=== PATIENT | male | born 1950 | race Two or more races ===

== ENCOUNTER → 2020-02-19 | Day surgery (SDC) | payer MEDICARE, OTHER ==
[2020-02-14 11:15] LABS: Basophils # (auto) 0 10 ^3/uL (0-0.2); Basophils % (auto) 0.2 % (0.0-2.0); Eosinophils # (auto) 0.2 10 ^3/uL (0-0.8); Eosinophils % (auto) 4.7 % (0.0-7.0); Hematocrit 34.2 % (41.0-53.0); Lymphocytes # (auto) 1.1 10 ^3/uL (0.4-5.4); Lymphocytes % (auto) 23.1 % (10.0-50.0); Mean Corpuscular Hemoglobin 32.6 pg (28.0-32.0); Mean Corpuscular Hgb Conc. 32.1 g/dL (32.0-36.0); Mean Corpuscular Volume 101.8 fL (80.0-100.0); Monocytes # (auto) 0.4 10 ^3/uL (0-1.3); Monocytes % (auto) 7.4 % (0.0-12.0); Neutrophils # (auto) 3.2 10 ^3/uL (1.6-8.6); Neutrophils % (auto) 64.6 % (37.0-80.0); Nucleated Red Blood Cells % 0.2 %; Platelet Count (auto) 202 10^3/uL (140-450); Red Blood Cells 3.36 10^6/uL (4.5-5.90); Red Cell Distribution Width 16.2 % (11.8-14.3); White Blood Cell 4.9 10^3/uL (4.4-10.8)
[2020-02-14 11:30] LABS: INR 0.98 (0.9-1.15)
[~2020-02-19] VITALS: Ht 172.7 cm; Wt 104.3 kg
[~2020-02-19] MED LIST: ALLO300T2 OR; ASPI-543 PO; ATOR10TA OR; CAND16TA11 OR; DULA1INJ SC; FLUMAZENIL 0.1 MG/ML INJ 10ML MDV IV ONE; GABA300C10 PO; INSU1INJ21 SC; INSUINJ32 SC; LIDOCAINE VISCOUS 2% 15ML UD ONE; METF-371 PO; NALOXONE HCL 0.4 MG/ML VIAL ONE; PIOG30TA20 PO; SODIUM CHLORIDE LOCK 10 ML ONE; diphenhdrAMINE HCL 50 MG/1 ML VL ONE
[2020-02-19] MEDS: fentaNYL CITRATE 100 MCG/2 ML VL ONE ×3 (13:05→13:20)
[2020-02-19] MEDS: MIDAZOLAM HCL 5 MG/ML-1ML VIAL ONE ×4 (13:05→13:20)
[2020-02-19 14:05] VITALS: BP 122/62
== END | disposition home or self-care (01) ==
LOC: GI 12:16
PROVIDERS: ATTEND Internal Medicine Gastroenterology
DX: K92.1 Melena (principal); K22.70 Barrett's esophagus without dysplasia; K44.9 Diaphragmatic hernia without obstruction or gangrene; K29.50 Unspecified chronic gastritis without bleeding; K21.00 Gastro-esophageal reflux disease with esophagitis, without bleeding; K63.5 Polyp of colon; K63.89 Other specified diseases of intestine; K57.30 Diverticulosis of large intestine without perforation or abscess without bleeding; K64.8 Other hemorrhoids; G47.30 Sleep apnea, unspecified; E66.9 Obesity, unspecified; E11.9 Type 2 diabetes mellitus without complications; Z20.828 Contact with and (suspected) exposure to other viral communicable diseases; Z98.890 Other specified postprocedural states; Z86.010 Personal history of colon polyps; Z80.0 Family history of malignant neoplasm of digestive organs; Z68.35 Body mass index [BMI] 35.0-35.9, adult; Z79.899 Other long term (current) drug therapy
CPT/HCPCS: 36415; 43239; 43450; 45380; 45385; 82962; 85025; 85610; 85730; J2250; J3010; J7030; U0003; 99153; G0500

== ENCOUNTER 2021-01-06 12:35 | Day surgery (SDC) | payer MEDICARE, OTHER ==
[2021-01-01 11:29] LABS: Basophils # (auto) 0 10 ^3/uL (0-0.2); Basophils % (auto) 0.7 % (0.0-2.0); Eosinophils # (auto) 0.2 10 ^3/uL (0-0.8); Eosinophils % (auto) 5.6 % (0.0-7.0); Hematocrit 29.5 % (41.0-53.0); Hemoglobin 9.7 g/dL (13.5-17.5); Lymphocytes # (auto) 1.3 10 ^3/uL (0.4-5.4); Lymphocytes % (auto) 29.4 % (10.0-50.0); Mean Corpuscular Hemoglobin 32.7 pg (28.0-32.0); Mean Corpuscular Hgb Conc. 32.7 g/dL (32.0-36.0); Mean Corpuscular Volume 99.9 fL (80.0-100.0); Monocytes # (auto) 0.4 10 ^3/uL (0-1.3); Monocytes % (auto) 8.6 % (0.0-12.0); Neutrophils # (auto) 2.5 10 ^3/uL (1.6-8.6); Neutrophils % (auto) 55.7 % (37.0-80.0); Red Blood Cells 2.96 10^6/uL (4.5-5.90); Red Cell Distribution Width 17.3 % (11.8-14.3); White Blood Cell 4.5 10^3/uL (4.4-10.8)
[2021-01-01 12:09] LABS: Potassium 4.6 mmol/L (3.5-5.1)
[2021-01-01 12:21] LABS: Albumin 3.1 g/dL (3.4-5.0); BUN/Creatinine Ratio 13.9; Bilirubin, Total 0.4 mg/dL (0.2-1.0); Calcium 9.2 mg/dL (8.5-10.1)
[~2021-01-06 12:35] MED LIST changes: +ASCO500T11 PO; -ASPI-543 PO; -ATOR10TA OR; +CAND16TA OR; -CAND16TA11 OR; +CHOL20007 PO; +CYAN1TAB14 PO; +FER300LQ GT; +FER325T PO; -FLUMAZENIL 0.1 MG/ML INJ 10ML MDV IV ONE; -LIDOCAINE VISCOUS 2% 15ML UD ONE; -NALOXONE HCL 0.4 MG/ML VIAL ONE; +OMEG100062 PO; +PANT40TA2 PO; -PIOG30TA20 PO; +PIOG30TA28 PO; -SODIUM CHLORIDE LOCK 10 ML ONE; +TAMS0.4C36 PO; -diphenhdrAMINE HCL 50 MG/1 ML VL ONE
[2021-01-06] MEDS ORDERED: LIDOCAINE VISCOUS 2% 15ML UD ONE (12:45)
[2021-01-06] MEDS ORDERED: SODIUM CHLORIDE LOCK 10 ML ONE (12:45)
[2021-01-06] MEDS: diphenhdrAMINE HCL 50 MG/1 ML VL ONE ×2 (13:28→13:36)
[2021-01-06] MEDS: MIDAZOLAM HCL 5 MG/ML-1ML VIAL ONE ×2 (13:28→13:31)
[2021-01-06] MEDS: fentaNYL CITRATE 100 MCG/2 ML VL ONE ×2 (13:28→13:31)
[2021-01-06 14:15] VITALS: BP 139/62
== END 2021-01-06 14:20 | disposition home or self-care (01) ==
LOC: GI 12:35
PROVIDERS: ATTEND Internal Medicine Gastroenterology
DX: K21.9 Gastro-esophageal reflux disease without esophagitis (principal); K44.9 Diaphragmatic hernia without obstruction or gangrene; K22.70 Barrett's esophagus without dysplasia; K31.89 Other diseases of stomach and duodenum; K29.70 Gastritis, unspecified, without bleeding; I10 Essential (primary) hypertension; E11.9 Type 2 diabetes mellitus without complications; E78.5 Hyperlipidemia, unspecified; M10.9 Gout, unspecified; Z96.651 Presence of right artificial knee joint; Z20.822 Contact with and (suspected) exposure to COVID-19; Z98.890 Other specified postprocedural states; Z79.899 Other long term (current) drug therapy; Z80.0 Family history of malignant neoplasm of digestive organs; Z82.49 Family history of ischemic heart disease and other diseases of the circulatory system; Z83.3 Family history of diabetes mellitus
CPT/HCPCS: 36415; 43239; 80053; 82962; 85025; 88305; 88312; 88313; 88342; J1200; J2250; J3010; J7030; U0003; G0500

== ENCOUNTER → 2021-08-26 | Outpatient (CLI) | payer MEDICARE, OTHER ==
[2021-08-26 11:24] LABS: Basophils # (auto) 0 10 ^3/uL (0-0.2); Basophils % (auto) 0.3 % (0.0-2.0); Eosinophils # (auto) 0.1 10 ^3/uL (0-0.8); Eosinophils % (auto) 2.4 % (0.0-7.0); Hematocrit 31.9 % (41.0-53.0); Hemoglobin 10.5 g/dL (13.5-17.5); Lymphocytes # (auto) 1.4 10 ^3/uL (0.4-5.4); Lymphocytes % (auto) 27.7 % (10.0-50.0); Mean Corpuscular Hemoglobin 31.7 pg (28.0-32.0); Mean Corpuscular Hgb Conc. 32.8 g/dL (32.0-36.0); Mean Corpuscular Volume 96.5 fL (80.0-100.0); Monocytes # (auto) 0.2 10 ^3/uL (0-1.3); Monocytes % (auto) 4.6 % (0.0-12.0); Neutrophils # (auto) 3.4 10 ^3/uL (1.6-8.6); Nucleated Red Blood Cells % 0.1 %; Red Blood Cells 3.31 10^6/uL (4.5-5.90); Red Cell Distribution Width 16.1 % (11.8-14.3); White Blood Cell 5.2 10^3/uL (4.4-10.8)
[2021-08-26 12:30] LABS: Folate (Folic Acid) 8.85 ng/mL (5.38-24)
== END | disposition home or self-care (01) ==
LOC: LAB 11:13
PROVIDERS: ATTEND Internal Medicine Gastroenterology
DX: D64.9 Anemia, unspecified (principal)
CPT/HCPCS: 36415; 82607; 82746; 85025

== ENCOUNTER 2022-01-04 09:21 | Day surgery (SDC) | payer MEDICARE, OTHER ==
[2021-12-31 10:11] LABS: INR 0.99 (0.9-1.15)
[2021-12-31 10:21] LABS: Basophils # (auto) 0 10 ^3/uL (0-0.2); Basophils % (auto) 0.4 % (0.0-2.0); Eosinophils # (auto) 0.3 10 ^3/uL (0-0.8); Eosinophils % (auto) 5.2 % (0.0-7.0); Hematocrit 30.9 % (41.0-53.0); Lymphocytes # (auto) 1.4 10 ^3/uL (0.4-5.4); Lymphocytes % (auto) 24.3 % (10.0-50.0); Mean Corpuscular Hemoglobin 31.7 pg (28.0-32.0); Mean Corpuscular Hgb Conc. 32.4 g/dL (32.0-36.0); Mean Corpuscular Volume 97.9 fL (80.0-100.0); Monocytes # (auto) 0.4 10 ^3/uL (0-1.3); Monocytes % (auto) 6.9 % (0.0-12.0); Neutrophils # (auto) 3.5 10 ^3/uL (1.6-8.6); Neutrophils % (auto) 63.2 % (37.0-80.0); Nucleated Red Blood Cells % 0.1 %; Red Blood Cells 3.15 10^6/uL (4.5-5.90); Red Cell Distribution Width 15.3 % (11.8-14.3); White Blood Cell 5.6 10^3/uL (4.4-10.8)
[2021-12-31 10:39] LABS: Albumin 3.4 g/dL (3.4-5.0); Calcium 9.1 mg/dL (8.5-10.1); Potassium 4.6 mmol/L (3.5-5.1)
[2021-12-31 10:42] LABS: BUN/Creatinine Ratio 13.3; Bilirubin, Total 0.4 mg/dL (0.2-1.0); Total Protein 8.5 g/dL (6.4-8.2)
[~2022-01-04] VITALS: Ht 170.2 cm; Wt 89.4 kg
[~2022-01-04 09:21] MED LIST changes: +ATOR10TA PO; -FER300LQ GT; -PIOG30TA28 PO
[2022-01-04] MEDS ORDERED: SODIUM CHLORIDE LOCK 10 ML ONE (09:32)
[2022-01-04] MEDS ORDERED: LIDOCAINE VISCOUS 2% 15ML UD ONE (09:32)
[2022-01-04] MEDS ORDERED: diphenhdrAMINE HCL 50 MG/1 ML VL ONE (09:32)
[2022-01-04] MEDS ORDERED: fentaNYL CITRATE 100 MCG/2 ML VL ONE (09:33)
[2022-01-04] MEDS: MIDAZOLAM HCL 5 MG/ML-1ML VIAL ONE ×2 (10:15→10:21)
[2022-01-04 10:55] VITALS: BP 129/72
== END 2022-01-04 11:07 | disposition home or self-care (01) ==
LOC: GI 09:21
PROVIDERS: ATTEND Internal Medicine Gastroenterology
DX: R10.9 Unspecified abdominal pain (principal); K44.9 Diaphragmatic hernia without obstruction or gangrene; K22.70 Barrett's esophagus without dysplasia; B37.81 Candidal esophagitis; K31.84 Gastroparesis; K29.50 Unspecified chronic gastritis without bleeding; I10 Essential (primary) hypertension; E11.43 Type 2 diabetes mellitus with diabetic autonomic (poly)neuropathy; M10.9 Gout, unspecified; G47.30 Sleep apnea, unspecified; Z96.651 Presence of right artificial knee joint; Z98.890 Other specified postprocedural states; Z79.899 Other long term (current) drug therapy; Z82.49 Family history of ischemic heart disease and other diseases of the circulatory system; Z80.0 Family history of malignant neoplasm of digestive organs; Z83.3 Family history of diabetes mellitus; Z20.822 Contact with and (suspected) exposure to COVID-19
CPT/HCPCS: 36415; 43239; 80053; 82962; 85025; 85610; 85730; 88305; 88312; 88342; J1200; J2250; J3010; J7030; U0003; G0500

== ENCOUNTER 2023-07-03 21:48 | Inpatient (IN) | payer MEDICARE, OTHER ==
[~2023-07-03] VITALS: Ht 172.7 cm; Wt 104.0 kg
[~2023-07-03 21:48] MED LIST changes: -CAND16TA OR; +CAND16TA PO; +GABA-1250 PO; -GABA300C10 PO
[2023-07-03] MEDS: ACETAMINOPHEN 650 MG RECT SUPP PR ONE (22:40)
[2023-07-03] MEDS: SODIUM CHLORIDE 0.9% 1,000 ML IV ONE (22:41)
[2023-07-03] MEDS: levoFLOXacin 500 MG/100 ML PREMIX BAG IV ONE (22:41)
[2023-07-03 23:07] LABS: Basophils # (auto) 0 10 ^3/uL (0-0.2); Basophils % (auto) 0.2 % (0.0-2.0); Eosinophils # (auto) 0 10 ^3/uL (0-0.8); Hematocrit 31.2 % (41.0-53.0); Hemoglobin 10.4 g/dL (13.5-17.5); Lymphocytes # (auto) 0.4 10 ^3/uL (0.4-5.4); Lymphocytes % (auto) 3.7 % (10.0-50.0); Mean Corpuscular Hemoglobin 34.4 pg (28.0-32.0); Mean Corpuscular Hgb Conc. 33.2 g/dL (32.0-36.0); Mean Corpuscular Volume 103.4 fL (80.0-100.0); Monocytes # (auto) 0.5 10 ^3/uL (0-1.3); Monocytes % (auto) 4.8 % (0.0-12.0); Neutrophils # (auto) 8.6 10 ^3/uL (1.6-8.6); Neutrophils % (auto) 91.3 % (37.0-80.0); Red Blood Cells 3.02 10^6/uL (4.5-5.90); Red Cell Distribution Width 15.8 % (11.8-14.3); White Blood Cell 9.5 10^3/uL (4.4-10.8)
[2023-07-03] MEDS: ACETAMINOPHEN 325 MG TAB PO ONE (23:09)
[2023-07-03 23:23] LABS: Alanine Aminotransferase 15 U/L (7-40); Albumin 4.5 g/dL (3.2-4.8); Alkaline Phosphatase 90 U/L (46-116); Anion Gap 9 (5-15); Aspartate Aminotransferase 56 U/L (13-40); BUN/Creatinine Ratio 14.5 (10.0-20.0); Bilirubin, Total 0.8 mg/dL (0.2-1.0); Blood Alcohol < 3.0 mg/dL (<10); Blood Urea Nitrogen 18 mg/dL (9-23); Calcium 9.2 mg/dL (8.5-10.1); Carbon Dioxide 25 mmol/L (20-30); Chloride 104 mmol/L (98-107); Glucose 81 mg/dL (74-106); Potassium 3.7 mmol/L (3.5-5.1); Sodium 138 mmol/L (136-145); Total Protein 7.1 g/dL (5.7-8.2)
[2023-07-03 23:33] LABS: Magnesium 1.5 mg/dL (1.6-2.6)
[2023-07-03] MEDS: IOHEXOL 350 MG/ML 100ML IJ ONE (23:48)
[2023-07-03] MEDS: ASPirin-EC 325mg tab PO ONE (23:57)
[2023-07-03] MEDS: ENOXAPARIN SOD 100 MG/1 ML SYRINGE SC ONE (23:57)
[2023-07-04] VITALS (11 sets, daily range): BP systolic 117; BP diastolic 58; PULSE 88–108; RESP 18–25; TEMP 99.8; O2SAT 93–100
[2023-07-04] MEDS: IPRATROPIUM BROM 0.5 MG/2.5ML INH SOL NEB ONE (00:06)
[2023-07-04] MEDS: ALBUTEROL SULF 2.5 MG/0.5ML(0.5%) NEB SOLN NEB ONE (00:06)
[2023-07-04 00:42] LABS: COVID19 ANTIGEN SOFIA FIA NEGATIVE (NEGATIVE)
[2023-07-04] MEDS ORDERED: ACETAMINOPHEN 325 MG TAB PO PRN (01:15)
[2023-07-04] MEDS ORDERED: DEXTROSE (50%) 50ML SYRG IV PRN (01:15)
[2023-07-04] MEDS ORDERED: MORPHINE SULFATE INJ 2 MG/ml SYRG IV PRN (01:15)
[2023-07-04] MEDS ORDERED: NITROGLYCERIN 0.4 MG SL TAB SL PRN (01:15)
[2023-07-04] MEDS ORDERED: ONDANSETRON HCL 4 MG/2 ML VIAL IV PRN (01:15)
[2023-07-04 02:15] LABS: Amphetamine Screen, Urine Neg (NEGATIVE); Barbiturate Scree,Urine Neg (NEGATIVE); Benzodiazephine Screen, Urine Neg (NEGATIVE); Cannabinoid Screen, Urine Neg (NEGATIVE); Cocaine Screen, Urine Neg (NEGATIVE); Opiate Scree,Urine Neg (NEGATIVE); Phencyclidine Screen, Urine Neg (NEGATIVE)
[2023-07-04 02:36] LABS: Urine Amorphous Crystal FEW /hpf (None Seen); Urine Bacteria NONE SEEN /hpf (None Seen); Urine Blood 3+ /uL (Negative); Urine Clarity Clear (Clear); Urine Color Yellow (Yellow); Urine Mucus FEW (None Seen); Urine Protein, UAD 2+ (Negative); Urine Specific Gravity 1.044 (1.001-1.035); Urine WBC 1 /hpf (0 - 3)
[2023-07-04] MEDS: ACCU-CHEK COMFORT CURVE STRIP VI SCH (08:58)
[2023-07-04] MEDS: InsuLIN REG 1unit/0.01ml Soln (100units/ml) SC SCH (08:58)
[2023-07-04] MEDS: cefTRIAXone 1GM/50ML D5W 50 ML IV SCH (09:03)
[2023-07-04] MEDS: ALBUTEROL SULF 2.5 MG/0.5ML(0.5%) NEB SOLN NEB PRN (09:14)
[2023-07-04] MEDS ORDERED: CANDESARTAN 16 MG PO SCH (10:00)
[2023-07-04] MEDS: AZITHROMYCIN 500MG/ 250ML 250 ML IV SCH (10:20)
[2023-07-04] MEDS: GABAPENTIN 300 MG CAP PO SCH (10:21)
[2023-07-04] MEDS: LOSARTAN POTASSIUM 50 MG TAB PO SCH (10:21)
[2023-07-04] MEDS: ASPirin 81 mg TAB PO SCH (10:22)
[2023-07-04] MEDS: ENOXAPARIN SOD 40 MG/0.4 ML SYRINGE SC SCH (10:22)
[2023-07-04] MEDS ORDERED: VANCOMYCIN PER PHARMACY 0 MG IV SCH (11:30)
[2023-07-04] MEDS: methylPREDNISolone SOD SUCC 40 MG/ML VL IV ONE (11:49)
[2023-07-04] MEDS: VANCOMYCIN 1GM/200ML 200 ML IV ONE (12:02)
[2023-07-04 12:45] LABS: Rapid Influenza A Negative (Negative); Rapid Influenza B Negative (Negative)
[2023-07-04 12:50] LABS: Alanine Aminotransferase 17 U/L (7-40); Albumin 4.1 g/dL (3.2-4.8); Alkaline Phosphatase 81 U/L (46-116); Anion Gap 16 (5-15); Aspartate Aminotransferase 73 U/L (13-40); BUN/Creatinine Ratio 12.2 (10.0-20.0); Bilirubin, Total 0.7 mg/dL (0.2-1.0); Blood Urea Nitrogen 15 mg/dL (9-23); Calcium 8.7 mg/dL (8.5-10.1); Carbon Dioxide 16 mmol/L (20-30); Chloride 102 mmol/L (98-107); Cholesterol 100 mg/dL (< 200); HDL Cholesterol 40 mg/dL (40-59); LDL Cholesterol 42 mg/dL (< 100); Potassium 3.8 mmol/L (3.5-5.1); Sodium 134 mmol/L (136-145); Total Protein 6.5 g/dL (5.7-8.2); Triglycerides 122 mg/dL (< 150)
[2023-07-04 13:03] LABS: Glucose 186 mg/dL (74-106)
[2023-07-04 13:07] LABS: Basophils # (auto) 0 10 ^3/uL (0-0.2); Eosinophils # (auto) 0 10 ^3/uL (0-0.8); Hematocrit 29.8 % (41.0-53.0); Hemoglobin 9.6 g/dL (13.5-17.5); Lymphocytes # (auto) 0.3 10 ^3/uL (0.4-5.4); Mean Corpuscular Hemoglobin 33.6 pg (28.0-32.0); Monocytes # (auto) 0.3 10 ^3/uL (0-1.3); Nucleated Red Blood Cells % 0.1 %
[2023-07-04 13:08] LABS: Basophils % (auto) 0.3 % (0.0-2.0); Lymphocytes % (auto) 6.2 % (10.0-50.0); Mean Corpuscular Hgb Conc. 32.4 g/dL (32.0-36.0); Mean Corpuscular Volume 103.7 fL (80.0-100.0); Monocytes % (auto) 4.8 % (0.0-12.0); Neutrophils # (auto) 4.8 10 ^3/uL (1.6-8.6); Neutrophils % (auto) 88.7 % (37.0-80.0); Red Blood Cells 2.87 10^6/uL (4.5-5.90); Red Cell Distribution Width 16.1 % (11.8-14.3); White Blood Cell 5.4 10^3/uL (4.4-10.8)
[2023-07-04] MEDS: CYANOCOBALAMIN 500 MCG TAB PO ONE (13:12)
[2023-07-04 13:22] LABS: Magnesium 1.6 mg/dL (1.6-2.6)
[2023-07-04 13:31] LABS: INR 1.13 (0.9-1.15); Partial Thromboplastin Time 46.5 SEC (24.5-34.5); Prothrombin Time 11.8 sec (9.3-11.8)
[2023-07-04] MEDS: MAGNESIUM SULFATE 1GM/100ML 100 ML IV ONE (14:20)
[2023-07-04] MEDS ORDERED: FLUT50SP EACHNOSTRI (15:25)
[2023-07-04] MEDS ORDERED: FOLI-119 PO (15:25)
[2023-07-04] MEDS ORDERED: METH2.5T PO (15:25)
[2023-07-04] MEDS ORDERED: PRE5T PO (15:25)
[2023-07-04] MEDS ORDERED: METO5TAB2 PO (15:25)
[2023-07-04] MEDS: IPRATROPIUM BROM 0.5 MG/2.5ML INH SOL NEB SCH (15:40)
[2023-07-04] MEDS: ALBUTEROL SULF 2.5 MG/0.5ML(0.5%) NEB SOLN NEB SCH (15:40)
[2023-07-04] MEDS: guaiFENesin 200 MG/10 ML UD PO PRN (15:47)
[2023-07-04] MEDS ORDERED: TAMSULOSIN HYDROCHLORIDE 0.4 MG CAP PO SCH (18:00)
[2023-07-04] MEDS: TAMSULOSIN HYDROCHLORIDE 0.4 MG CAP PO SCH (18:20)
[2023-07-04] MEDS: methylPREDNISolone SOD SUCC 40 MG/ML VL IV SCH (22:52)
[2023-07-04] MEDS: ATORVASTATIN 20 MG TAB PO SCH (22:52)
[2023-07-05] VITALS (16 sets, daily range): BP systolic 104–137; BP diastolic 47–60; PULSE 76–98; RESP 16–79; TEMP 97.5–98.9; O2SAT 96–100
[2023-07-05] MEDS: VANCOMYCIN 1GM/200ML 200 ML IV SCH (02:00)
[2023-07-05 06:19] LABS: Basophils # (auto) 0 10 ^3/uL (0-0.2); Basophils % (auto) 0.1 % (0.0-2.0); Eosinophils # (auto) 0 10 ^3/uL (0-0.8); Hemoglobin 9.9 g/dL (13.5-17.5); Lymphocytes # (auto) 0.3 10 ^3/uL (0.4-5.4); Neutrophils # (auto) 2.9 10 ^3/uL (1.6-8.6); Neutrophils % (auto) 80.8 % (37.0-80.0); White Blood Cell 3.6 10^3/uL (4.4-10.8)
[2023-07-05 06:21] LABS: Hematocrit 30.2 % (41.0-53.0); Lymphocytes % (auto) 9.4 % (10.0-50.0); Mean Corpuscular Hemoglobin 34.3 pg (28.0-32.0); Mean Corpuscular Hgb Conc. 32.7 g/dL (32.0-36.0); Monocytes # (auto) 0.3 10 ^3/uL (0-1.3); Monocytes % (auto) 9.7 % (0.0-12.0); Nucleated Red Blood Cells % 0.1 %; Red Blood Cells 2.88 10^6/uL (4.5-5.90); Red Cell Distribution Width 16.1 % (11.8-14.3)
[2023-07-05 06:46] LABS: Alanine Aminotransferase 22 U/L (7-40); Alkaline Phosphatase 81 U/L (46-116); Anion Gap 7 (5-15); Aspartate Aminotransferase 57 U/L (13-40); BUN/Creatinine Ratio 16.4 (10.0-20.0); Bilirubin, Total 0.4 mg/dL (0.2-1.0); Blood Urea Nitrogen 20 mg/dL (9-23); Calcium 9.3 mg/dL (8.5-10.1); Carbon Dioxide 24 mmol/L (20-30); Chloride 106 mmol/L (98-107); Sodium 137 mmol/L (136-145); Total Protein 6.5 g/dL (5.7-8.2)
[2023-07-05 06:52] LABS: Glucose 321 mg/dL (74-106)
[2023-07-05] MEDS: ALLOPURINOL 100 MG TAB PO SCH (09:11)
[2023-07-05] MEDS: CYANOCOBALAMIN 500 MCG TAB PO SCH (09:11)
[2023-07-05] MEDS: LOSARTAN POTASSIUM 50 MG TAB PO SCH (09:12)
[2023-07-05] MEDS: FUROSEMIDE 20 MG/2 ML VIAL IV ONE (11:45)
[2023-07-05] MEDS: ERGOCALCIFEROL 50,000 UNIT(1.25MG) CAP PO SCH (11:45)
[2023-07-05] MEDS: InsuLIN REG 1unit/0.01ml Soln (100units/ml) IV ONE (18:01)
[2023-07-05] MEDS ORDERED: DEXTROSE (50%) 50ML SYRG IV PRN (20:45)
[2023-07-05] MEDS: methylPREDNISolone SOD SUCC 40 MG/ML VL IV SCH (21:16)
[2023-07-05] MEDS: ACCU-CHEK COMFORT CURVE STRIP VI SCH (21:16)
[2023-07-05] MEDS: InsuLIN REG 1unit/0.01ml Soln (100units/ml) SC SCH (21:27)
[2023-07-06] VITALS (19 sets, daily range): BP systolic 109–142; BP diastolic 50–71; PULSE 54–99; RESP 16–20; TEMP 97.6–98.9; O2SAT 92–100
[2023-07-06 05:31] LABS: Basophils # (auto) 0 10 ^3/uL (0-0.2); Eosinophils # (auto) 0 10 ^3/uL (0-0.8); Monocytes # (auto) 0.5 10 ^3/uL (0-1.3); Neutrophils # (auto) 2.7 10 ^3/uL (1.6-8.6); White Blood Cell 3.8 10^3/uL (4.4-10.8)
[2023-07-06 05:36] LABS: Basophils % (auto) 0.5 % (0.0-2.0); Hematocrit 30.1 % (41.0-53.0); Hemoglobin 9.7 g/dL (13.5-17.5); Lymphocytes # (auto) 0.6 10 ^3/uL (0.4-5.4); Lymphocytes % (auto) 15.7 % (10.0-50.0); Mean Corpuscular Hemoglobin 33.6 pg (28.0-32.0); Mean Corpuscular Hgb Conc. 32.4 g/dL (32.0-36.0); Mean Corpuscular Volume 103.8 fL (80.0-100.0); Monocytes % (auto) 12.8 % (0.0-12.0); Nucleated Red Blood Cells % 0.5 %; Red Cell Distribution Width 16.2 % (11.8-14.3)
[2023-07-06 05:42] LABS: Chloride 106 mmol/L (98-107); Potassium 4.4 mmol/L (3.5-5.1); Sodium 139 mmol/L (136-145)
[2023-07-06 05:43] LABS: Anion Gap 10 (5-15); Calcium 10.1 mg/dL (8.7-10.4); Carbon Dioxide 23 mmol/L (20-30)
[2023-07-06 05:48] LABS: BUN/Creatinine Ratio 22.1 (10.0-20.0); Blood Urea Nitrogen 27 mg/dL (9-23)
[2023-07-06 05:56] LABS: Glucose 221 mg/dL (74-106)
[2023-07-06 06:07] LABS: CMV IgM Antibody <30.0 AU/mL (0.0-29.9); EBV Ab VCA IgM Antibody <36.0 U/mL (0.0-35.9)
[2023-07-06 09:12] LABS: Hepatitis C Antibody Negative (Negative)
[2023-07-06] MEDS: FOLIC ACID 1 MG TAB PO SCH (09:40)
[2023-07-06] MEDS: AZITHROMYCIN 250 MG TAB PO SCH (10:00)
[2023-07-06] MEDS: FUROSEMIDE 20 MG/2 ML VIAL IV ONE (10:00)
[2023-07-06 11:18] LABS: Hepatitis B Surface Antigen Negative (Negative)
[2023-07-06] MEDS: POTASSIUM CHL 10 Meq TABLET PO ONE (12:13)
[2023-07-06] MEDS: predniSONE 20 MG TAB PO SCH (12:14)
[2023-07-06 15:35] LABS: Hepatitis B Core Total AB Negative (Negative)
[2023-07-06 16:49] LABS: Hepatitis A Total Antibody Positive (Negative)
[2023-07-06 16:50] LABS: Hepatitis B Surface Antibody Negative (Negative); Hepatitis B Surface Antigen Negative (Negative); Hepatitis C Antibody Negative (Negative)
[2023-07-06] MEDS: InsuLIN REG 1unit/0.01ml Soln (100units/ml) SC ONE (20:32)
[2023-07-07] VITALS (18 sets, daily range): BP systolic 98–142; BP diastolic 45–73; PULSE 72–98; RESP 16–20; TEMP 97.5–98.2; O2SAT 92–100
[2023-07-07] MEDS ORDERED: INSU100I67 SC (01:48)
[2023-07-07 05:26] LABS: Chloride 103 mmol/L (98-107); Sodium 136 mmol/L (136-145)
[2023-07-07 05:27] LABS: Anion Gap 10 (5-15); Carbon Dioxide 23 mmol/L (20-30)
[2023-07-07 05:32] LABS: BUN/Creatinine Ratio 23.5 (10.0-20.0); Blood Urea Nitrogen 35 mg/dL (9-23)
[2023-07-07 05:38] LABS: Glucose 391 mg/dL (74-106)
[2023-07-07] MEDS: LACTULOSE 20Gm/30ML SOLN PO ONE (19:45)
[2023-07-07 20:06] LABS: Mycoplasma pneumoniae IgG Ab 237 U/mL (0-99); Mycoplasma pneumoniae IgM Ab <770 U/mL (0-769)
[2023-07-07] MEDS: DOCUSATE SOD 100 MG CAP PO SCH (22:18)
[2023-07-08] VITALS (10 sets, daily range): BP systolic 96–109; BP diastolic 58–63; PULSE 77–96; RESP 16–20; TEMP 36.4; O2SAT 95–100
[2023-07-08] MEDS: INSULIN LANTUS (GLARGINE) 1 /0.01ml (100units/ml) SC SCH (00:50)
[2023-07-08] MEDS ORDERED: AZIT-43 PO (13:11)
[2023-07-08] MEDS ORDERED: ASPI-325 PO (13:11)
[2023-07-08] MEDS ORDERED: LOSA50TA46 PO (13:11)
[2023-07-08] MEDS ORDERED: TAMS-35 PO (13:11)
[2023-07-08] MEDS ORDERED: ATOR20TA50 PO (13:11)
[2023-07-08] MEDS ORDERED: GABA-1250 PO (13:11)
[2023-07-08] MEDS ORDERED: ALL100T PO (13:11)
== END 2023-07-08 15:28 | disposition home or self-care (01) | DRG 871 ==
LOC: EDBD 21:48 → ER 21:48 → EDUNIT# 21:48 → TELE 07-04 01:21 → TELE-CENTR 07-04 23:37 → CENTRAL 07-06 22:18
PROVIDERS: ADMIT Nurse Practitioner; ATTEND Internal Medicine
DX: A41.50 Gram-negative sepsis, unspecified (principal); G93.41 Metabolic encephalopathy; I21.A1 Myocardial infarction type 2; J15.69 Pneumonia due to other Gram-negative bacteria; J96.01 Acute respiratory failure with hypoxia; I10 Essential (primary) hypertension; D53.9 Nutritional anemia, unspecified; E53.8 Deficiency of other specified B group vitamins; Z20.822 Contact with and (suspected) exposure to COVID-19; M31.6 Other giant cell arteritis; N40.0 Benign prostatic hyperplasia without lower urinary tract symptoms; M10.9 Gout, unspecified; E11.42 Type 2 diabetes mellitus with diabetic polyneuropathy; G47.30 Sleep apnea, unspecified; Z79.52 Long term (current) use of systemic steroids; Z79.899 Other long term (current) drug therapy; Z79.4 Long term (current) use of insulin; Z83.3 Family history of diabetes mellitus; Z80.0 Family history of malignant neoplasm of digestive organs; Z82.3 Family history of stroke
CPT/HCPCS: 36415; 70450; 71045; 71275; 72125; 80048; 80053; 80061; 80202; 80307; 80320; 81001; 82306; 82607; 82746; 82962; 83036; 83605; 83735; 83880; 84443; 84484; 85025; 85379; 85610; 85730; 86644; 86645; 86664; 86703; 86704; 86706; 86708; 86738; 86803; 87040; 87070; 87086; 87205; 87340; 87426; 87804; 93005; 93306; 94640; 97110; 97116; 97163; 97530; 99291; G0378; J1815; J1956

== ENCOUNTER 2023-08-11 09:59 | Day surgery (SDC) | payer MEDICARE, OTHER ==
[2023-08-09 11:31] LABS: Basophils # (auto) 0 10 ^3/uL (0-0.2); Eosinophils # (auto) 0.1 10 ^3/uL (0-0.8); Lymphocytes # (auto) 0.9 10 ^3/uL (0.4-5.4); Monocytes # (auto) 0.4 10 ^3/uL (0-1.3)
[2023-08-09 11:33] LABS: Basophils % (auto) 0.5 % (0.0-2.0); Eosinophils % (auto) 2.1 % (0.0-7.0); Hematocrit 33.6 % (41.0-53.0); Hemoglobin 10.9 g/dL (13.5-17.5); Mean Corpuscular Hgb Conc. 32.5 g/dL (32.0-36.0); Mean Corpuscular Volume 104.8 fL (80.0-100.0); Monocytes % (auto) 6.2 % (0.0-12.0); Neutrophils # (auto) 4.4 10 ^3/uL (1.6-8.6); Neutrophils % (auto) 75.2 % (37.0-80.0); Nucleated Red Blood Cells % 0.2 %; Red Blood Cells 3.21 10^6/uL (4.5-5.90); Red Cell Distribution Width 17.9 % (11.8-14.3); White Blood Cell 5.9 10^3/uL (4.4-10.8)
[2023-08-09 11:48] LABS: INR 1.01 (0.9-1.15); Prothrombin Time 10.6 sec (9.3-11.8)
[2023-08-09 12:11] LABS: Alanine Aminotransferase 17 U/L (7-40); Albumin 4.7 g/dL (3.2-4.8); Alkaline Phosphatase 108 U/L (46-116); Anion Gap 6 (5-15); Aspartate Aminotransferase 15 U/L (13-40); BUN/Creatinine Ratio 17.5 (10.0-20.0); Blood Urea Nitrogen 21 mg/dL (9-23); Calcium 9.8 mg/dL (8.5-10.1); Carbon Dioxide 23 mmol/L (20-30); Chloride 111 mmol/L (98-107); Glucose 118 mg/dL (74-106); Potassium 4.6 mmol/L (3.5-5.1); Sodium 140 mmol/L (136-145)
[2023-08-09 12:12] LABS: Bilirubin, Total 0.4 mg/dL (0.2-1.0); Total Protein 7.8 g/dL (5.7-8.2)
[~2023-08-11] VITALS: Ht 170.2 cm; Wt 91.6 kg
[~2023-08-11 09:59] MED LIST changes: -ALLO300T2 OR; +ALLO300T2 PO; +AZIT-43 PO; +CHOL20004 PO; -CHOL20007 PO; -CYAN1TAB14 PO; -DULA1INJ SC; +EMPA1TAB3 PO; +FOLI-119 PO; +INSU100I67 SC; -INSU1INJ21 SC; +INSUINJ18 SC; -INSUINJ32 SC; +METF-370 PO; -METF-371 PO; +METH2.5T PO; +METH50006 SL; +METO5TAB2 PO; +OMEG-20 PO; -OMEG100062 PO; +PRED10TA PO; +SUCR1TAB31 OR; +TAMS-35 PO; -TAMS0.4C36 PO
[2023-08-11] MEDS ORDERED: SODIUM CHLORIDE LOCK 10 ML ONE (10:53)
[2023-08-11 11:26] VITALS: O2SAT 98
[2023-08-11] MEDS: LIDOCAINE VISCOUS 2% 15ML UD ONE (11:36)
[2023-08-11] MEDS: diphenhdrAMINE HCL 50 MG/1 ML VL ONE (11:37)
[2023-08-11] MEDS: MIDAZOLAM HCL 5 MG/ML-1ML VIAL ONE (11:37)
[2023-08-11] MEDS: fentaNYL CITRATE 100 MCG/2 ML VL ONE (11:37)
[2023-08-11 11:51] VITALS: PULSE 76; RESP 14; TEMP 98.5; O2SAT 14
[2023-08-11 12:26] VITALS: BP 117/66; PULSE 69; RESP 14; O2SAT 98
== END 2023-08-11 12:40 | disposition home or self-care (01) ==
LOC: GI 09:59
PROVIDERS: ATTEND Internal Medicine Gastroenterology
DX: K21.00 Gastro-esophageal reflux disease with esophagitis, without bleeding (principal); K22.89 Other specified disease of esophagus; K29.50 Unspecified chronic gastritis without bleeding; K29.80 Duodenitis without bleeding; K44.9 Diaphragmatic hernia without obstruction or gangrene; G47.30 Sleep apnea, unspecified; E11.9 Type 2 diabetes mellitus without complications; I10 Essential (primary) hypertension; M10.9 Gout, unspecified; Z96.651 Presence of right artificial knee joint; Z79.4 Long term (current) use of insulin; Z79.899 Other long term (current) drug therapy; Z98.890 Other specified postprocedural states
CPT/HCPCS: 36415; 43239; 80053; 82962; 85025; 85610; 85730; 88305; 88312; 88342; J1200; J2250; J3010; 99152

== ENCOUNTER 2024-03-04 15:36 | Emergency (ER) | payer MEDICARE, OTHER ==
[~2024-03-04] VITALS: Ht 170.2 cm; Wt 92.7 kg
[2024-03-04 16:15] LABS: Basophils # (auto) 0 10 ^3/uL (0-0.2); Eosinophils # (auto) 0.1 10 ^3/uL (0-0.8); Hemoglobin 8.5 g/dL (13.5-17.5); Monocytes # (auto) 0.7 10 ^3/uL (0-1.3); Neutrophils # (auto) 5.3 10 ^3/uL (1.6-8.6)
[2024-03-04 16:17] LABS: Basophils % (auto) 0.4 % (0.0-2.0); Eosinophils % (auto) 1.3 % (0.0-7.0); Hematocrit 25.8 % (41.0-53.0); Lymphocytes # (auto) 1.3 10 ^3/uL (0.4-5.4); Lymphocytes % (auto) 16.9 % (10.0-50.0); Mean Corpuscular Hemoglobin 35.1 pg (28.0-32.0); Mean Corpuscular Hgb Conc. 33.1 g/dL (32.0-36.0); Mean Corpuscular Volume 106.1 fL (80.0-100.0); Monocytes % (auto) 9.6 % (0.0-12.0); Neutrophils % (auto) 71.8 % (37.0-80.0); Nucleated Red Blood Cells % 0.1 %; Platelet Count (auto) 281 10^3/uL (140-450); Red Blood Cells 2.43 10^6/uL (4.5-5.90); Red Cell Distribution Width 19.6 % (11.8-14.3); White Blood Cell 7.4 10^3/uL (4.4-10.8)
--- NOTE | 2024-03-04 16:21 | DVH ---
CHEST RADIOGRAPH Indication:SOB Technique: Single frontal view of the chest was obtained Comparison: XY CHEST PORTABLE on DOS: 07/07/23, XY CHEST PORTABLE on DOS: 07/05/23, XY CHEST PORTABLE o n DOS: 07/03/23 FINDINGS: Lines and Tubes: None Lungs: No focal consolidation. Pleura: No effusion. No pneumothorax. Cardiomediastinal contours: Unremarkable Bones: No acute osseous abnormality. IMPRESSION: 1. No acute cardiopulmonary disease. 2. No significant change from 07/07/2023
[2024-03-04 16:32] LABS: Alanine Aminotransferase 60 U/L (7-40); Albumin 4.4 g/dL (3.2-4.8); Alkaline Phosphatase 127 U/L (46-116); Anion Gap 6 (5-15); Aspartate Aminotransferase 30 U/L (13-40); BUN/Creatinine Ratio 17.2 (10.0-20.0); Blood Urea Nitrogen 21 mg/dL (9-23); Calcium 9.8 mg/dL (8.7-10.4); Carbon Dioxide 23 mmol/L (20-31); Chloride 109 mmol/L (98-107); Glucose 251 mg/dL (74-106); Potassium 4.5 mmol/L (3.5-5.1); Sodium 138 mmol/L (136-145)
[2024-03-04 16:33] LABS: Bilirubin, Total 0.5 mg/dL (0.2-1.0); Total Protein 8.3 g/dL (5.7-8.2)
[2024-03-04] MEDS ORDERED: PROM1SOL4 PO (18:28)
--- NOTE | 2024-03-04 18:29 | ED.PDOC ---
SOB-HPI HPI Comments Patient complaining of intermittent shortness a breath over the last two weeks. Patient states he recently returned from a cruise. States he has been having cough and congestion over the last two weeks. No new foods no new medications. Nothing makes it better, nothing makes it worse. Patient denies any fever or chills currently. Chief Complaint: Shortness of Breath Time Seen by MD: 15:47 Reviewed notes: Nurses Notes Information Source: Patient Mode of Arrival: Ambulatory Severity: Moderate Past Medical History PAST MEDICAL HISTORY: DM, HTN Surgical History: Denies all surgeries Family History Family History: Reviewed,noncontributory to illness Social History Smoker: Non-Smoker Alcohol: Denies ETOH Use Drugs: Denies Drug Use Lives In: Home Constitutional: reports: fatigue; denies: chills, diaphoresis, fever, malaise, sweats, weakness, others EENTM: denies: blurred vision, double vision, ear bleeding, ear discharge, ear drainage, ear pain, ear ringing, eye pain, eye redness, hearing loss, mouth pain, mouth swelling, nasal discharge, nose bleeding, nose congestion, nose pain, photophobia, tearing, throat pain, throat swelling, voice changes, others Respiratory: reports: cough, SOB with excertion; denies: hemoptysis, orthopnea, SOB at rest, shortness of breath, stridor, wheezing, others Cardiovascular: denies: chest pain, dizzy spells, diaphoresis, Dyspnea on exertion, edema, irregular heart beat, left arm pain, lightheadedness, palpitations, PND, syncope, others Gastrointestinal: denies: abdomen distended, abdominal pain, blood streaked bowels, constipated, diarrhea, dysphagia, difficulty swallowing, hematemesis, melena, nausea, poor appetite, poor fluid intake, rectal bleeding, rectal pain, vomiting, others Genitourinary: denies: burning, dysuria, flank pain, frequency, hematuria, incontinence, penile discharge, penile sore, pain, testicle pain, testicle swelling, urgency, others Neurological: denies: dizziness, fainting, headache, left sided numbness, left sided weakness, numbness, paresthesia, pre-existing deficit, right sided numbness, right sided weakness, seizure, speech problems, tingling, tremors, weakness, others Musculoskeletal: denies: back pain, gout, joint pain, joint swelling, muscle pain, muscle stiffness, neck pain, others Integumetry: denies: bruises, change in color, change in hair/nails, dryness, laceration, lesions, lumps, rash, wounds, others Allergic/Immunocompromised: denies: Difficulty Healing, Frequent Infections, Hives, Itching, others Hematologic/Lymphatic: denies: anemia, blood clots, easy bleeding, easy bruising, swollen glands, others Physical Exam General Appearance: No Apparent Distress, Normal HEENT: Normal ENT Inspection, Pharynx Normal, TMs Normal Neck: Full Range of Motion, Non-Tender, Normal, Normal Inspection Respiratory: Chest Non-Tender, Lungs Clear, No Accessory Muscle Use, No Respiratory Distress, Normal Breath Sounds Cardiovascular: No Edema, No JVD, No Murmur, No Gallop, Normal Peripheral Pulses, Regular Rate/Rhythm Breast Exam: Deferred Gastrointestinal: No Organomegaly, Non Tender, No Pulsatile Mass, Normal Bowel Sounds, Soft Genitalia: Deferred Pelvic: Deferred Rectal: Deferred Extremities: No calf tenderness, Normal capillary refill, Normal inspection, Normal range of motion, Non-tender, No pedal edema Musculoskeletal : Apperance: Normal Neurologic: Alert, steelscope operator II-XII nml as Tested, No Motor Deficits, Normal Affect, Normal Mood, No Sensory Deficits Cerebellar Function: Normal Reflexes: Normal Skin: Dry, Normal Color, Warm Lymphatic: No Adenopathy Was a procedure done? Was a procedure done?: No Differential Dx Differential Diagnosis: Anxiety, Asthma, Bronchitis, Hypertension, Myocardial infarction, Pneumonia, URI X-Ray, Labs, Meds, VS Vital Signs Date Time Temp Pulse Resp B/P (MAP) Pulse Ox O2 Delivery O2 Flow Rate FiO2 03/04/24 15:55 18 97 Room Air* 0 21 03/04/24 15:49 98.4 95 18 138/65 (89) 97 03/04/24 15:49 96 Lab Test 03/04/24 15:50 Range/Units White Blood Count 7.4 4.4-10.8 10^3/uL Red Blood Count 2.43 L 4.5-5.90 10^6/uL Hemoglobin 8.5 L 13.5-17.5 g/dL Hematocrit 25.8 L 41.0-53.0 % Mean Corpuscular Volume 106.1 H 80.0-100.0 fL Mean Corpuscular Hemoglobin 35.1 H 28.0-32.0 pg Mean Corpuscular Hemoglobin Concent 33.1 32.0-36.0 g/dL Red Cell Distribution Width 19.6 H 11.8-14.3 % Platelet Count 281 140-450 10^3/uL Mean Platelet Volume 7.4 6.9-10.8 fL Neutrophils (%) (Auto) 71.8 37.0-80.0 % Lymphocytes (%) (Auto) 16.9 10.0-50.0 % Monocytes (%) (Auto) 9.6 0.0-12.0 % Eosinophils (%) (Auto) 1.3 0.0-7.0 % Basophils (%) (Auto) 0.4 0.0-2.0 % Neutrophils # (Auto) 5.3 1.6-8.6 10 ^3/uL Lymphocytes # (Auto) 1.3 0.4-5.4 10 ^3/uL Monocytes # (Auto) 0.7 0-1.3 10 ^3/uL Eosinophils # (Auto) 0.1 0-0.8 10 ^3/uL Basophils # (Auto) 0 0-0.2 10 ^3/uL Nucleated Red Blood Cells 0.1 % Sodium Level 138 136-145 mmol/L Potassium Level 4.5 3.5-5.1 mmol/L Chloride Level 109 H 98-107 mmol/L Carbon Dioxide Level 23 20-31 mmol/L Anion Gap 6 5-15 Blood Urea Nitrogen 21 9-23 mg/dL Creatinine 1.22 0.700-1.30 mg/dL Glomerular Filtration Rate Calc 62 >90 mL/min BUN/Creatinine Ratio 17.2 10.0-20.0 Serum Glucose 251 H 74-106 mg/dL Calcium Level 9.8 8.7-10.4 mg/dL Total Bilirubin 0.5 0.2-1.0 mg/dL Aspartate Amino Transferase (AST) 30 13-40 U/L Alanine Aminotransferase (ALT) 60 H 7-40 U/L Alkaline Phosphatase 127 H 46-116 U/L Troponin I High Sensitivity 7 </=54 ng/L B-Type Natriuretic Peptide 36.64 0-100 pg/mL Total Protein 8.3 H 5.7-8.2 g/dL Albumin 4.4 3.2-4.8 g/dL X-Ray, Labs, Meds, VS Comment Imaging: X-rays and CT scans were reviewed and interpreted by this provider, imaging shows no fractures and no pathological disease. Pending radiology review. Laboratory: Labs reviewed and interpreted by this provider. Hemoglobin at eight. Patient denied any black stool or vomiting coffee-ground emesis. Advised he will need to follow up with PCP for further rule out for his anemia. Patient has prior medical visits reviewed. Med reconciliation performed Vital signs reviewed Time of 1ST Reevaluation: 18:29 Reevaluation 1ST: Unchanged Patient Education/Counseling: Diagnosis, Treatment, Need For Follow Up (Follow up with PCP in the next available appointment.) Family Education/Counseling: Diagnosis, Treatment Departure 1 Departure Time of Disposition: 18:27 Impression: Primary Impression: Anemia Qualified Codes: D50.9 - Iron deficiency anemia, unspecified Additional Impression: URI (upper respiratory infection) Qualified Codes: J06.9 - Acute upper respiratory infection, unspecified Disposition: HOME / SELF CARE / HOMELESS Condition: Fair e-Prescriptions Promethazine-Dm (Promethazine Dm 6.25-15 mg/5Ml) 1 Chelsea Chelsea 5 ML PO TID, #240 ML Prov: MITRA CAMPOVERDE 03/04/24 Discharged With: Self Critical Care Note Critical Care Time?: No Stability Stability form required: No Heart Score Heart Score: Heart Score Response (Comments) Value History N/A 0 EKG N/A 0 Age N/A 0 Risk Factors N/A 0 Troponin N/A 0 Total 0 MITRA CAMPOVERDE Mar 04, 2024 18:29
[2024-03-04 19:59] VITALS: BP 139/52; PULSE 98; RESP 20; TEMP 97.7; O2SAT 98
--- NOTE | 2024-03-05 08:00 | ECG ---
[facility] Test Date: 2024-03-04 Test Time: 15:49:46 Pat Name: DEANN ROSS Department: ER Room: Gender: M Compound Specialist: SWETA : 1950 Requested By: EMERGENCY EMERGENCY Order Number: [id number] Reading MD: Measurements Intervals Erhard Rate: 96 P: 31 MS: 206 QRS: 52 QRSD: 82 T: 23 QT: 346 QTc: 438 Interpretive Statements Sinus rhythm Low voltage, precordial leads Baseline wander in lead(s) V1 Please click the below link to view image of tracing.
== END 2024-03-04 20:01 | disposition home or self-care (01) ==
LOC: ER 15:36
DX: J06.9 Acute upper respiratory infection, unspecified (principal); D64.9 Anemia, unspecified; I10 Essential (primary) hypertension; E11.9 Type 2 diabetes mellitus without complications
CPT/HCPCS: 36415; 71045; 80053; 83880; 84484; 85025; 93005

== ENCOUNTER 2025-01-10 08:19 | Day surgery (SDC) | payer MEDICARE, OTHER ==
[2025-01-06 11:54] LABS: Hemoglobin 12.1 g/dL (13.5-17.5)
[2025-01-06 11:56] LABS: Hematocrit 35.3 % (41.0-53.0); Mean Corpuscular Hemoglobin 35.4 pg (28.0-32.0); Mean Corpuscular Volume 103.4 fL (80.0-100.0); Nucleated Red Blood Cells % 0.2 %
[2025-01-06 12:04] LABS: INR 1.04 (0.9-1.15); Partial Thromboplastin Time 30.0 SEC (24.5-34.5); Prothrombin Time 11.0 sec (9.3-11.8)
[2025-01-06 12:10] LABS: Urine Protein, UAD Negative (Negative)
[2025-01-06 12:19] LABS: Alanine Aminotransferase 26 U/L (7-40); Albumin 4.4 g/dL (3.2-4.8); Anion Gap 11 (5-15); BUN/Creatinine Ratio 8.5 (10.0-20.0); Blood Urea Nitrogen 11 mg/dL (9-23); Calcium 9.1 mg/dL (8.7-10.4); Carbon Dioxide 26 mmol/L (20-31); Chloride 107 mmol/L (98-107); Potassium 4.0 mmol/L (3.5-5.1); Sodium 144 mmol/L (136-145); Total Protein 6.8 g/dL (5.7-8.2)
[2025-01-06 12:20] LABS: Alkaline Phosphatase 120 U/L (46-116); Bilirubin, Total 0.8 mg/dL (0.2-1.0); Glucose 182 mg/dL (74-106)
[2025-01-06 14:41] LABS: Macrocytosis Slight
[~2025-01-10] VITALS: Ht 170.2 cm; Wt 90.7 kg
[~2025-01-10 08:19] MED LIST changes: -ATOR10TA PO; -AZIT-43 PO; +DULA3INJ SC; -EMPA1TAB3 PO; -FER325T PO; -FOLI-119 PO; -INSU100I67 SC; -METH2.5T PO; -OMEG-20 PO; -PRED10TA PO; +[UNRECOGNIZED DRUG - CODE] IX; +[UNRECOGNIZED DRUG - CODE] SC
[2025-01-10] MEDS ORDERED: MIDAZOLAM HCL 2MG/2ML 2ml VIAL (1mg/ml) ONE (09:02)
[2025-01-10] MEDS ORDERED: fentaNYL CITRATE 100 MCG/2 ML VL ONE (09:02)
[2025-01-10] MEDS ORDERED: GLYCOPYRROLATE 0.2 MG/ML 1ML VIAL ONE (09:03)
[2025-01-10] MEDS ORDERED: LIDOCAINE 2% (LOCAL ANESTH.) PF 5ml SDV ONE (09:03)
[2025-01-10] MEDS ORDERED: ONDANSETRON HCL 4 MG/2 ML VIAL ONE (09:03)
[2025-01-10] MEDS ORDERED: PROPOFOL 10 MG/ML 20 ML IV ONE (09:03)
[2025-01-10 10:48] VITALS: PULSE 97; RESP 12; TEMP 97.1; O2SAT 96
--- NOTE | 2025-01-10 10:55 | DVHOP2 ---
Operative Report DATE OF OPERATION: 01/10/25 PROCEDURE: Colonoscopy with cold biopsy polypectomy PREOPERATIVE INDICATION: The patient is a 74 -year-old male undergoing colonoscopy for surveillance with personal history of colon polyps POSTOPERATIVE DIAGNOSES: 1. 2 mm benign-appearing ascending colon polyp was seen and removed by cold biopsy forceps 2. There were two 1-2 mm hyperplastic type sigmoid excrescences that were seen and removed by cold biopsy forceps 3. Mild sigmoid diverticular disease 4. Trace to 1+ internal hemorrhoids otherwise normal examination up to the cecum PROCEDURE PERFORMED BY: Elvin Toney M.D. SCOPE: Olympus videocolonoscope. ASA CLASS: 3 PREOPERATIVE MEDICATIONS: Dr. Guzman Swain PROCEDURE IN DETAIL: After obtaining an informed consent, the patient was placed on left lateral decubitus position. He was then sedated with the above medications. A rectal examination was performed that was normal. The colonoscope was then passed through the anus into the rectosigmoid and through the descending, transverse, and ascending colon up to the cecum with visualization of the appendiceal orifice, base of the cecum and the ileocecal valve. The colonoscope was then withdrawn. No masses or colitis were seen There was a 2 mm benign-appearing hyperplastic type ascending colon polyp that was seen and removed by cold biopsy forceps There was mild sigmoid diverticular disease In the sigmoid colon there were two hyperplastic type diminutive polyps. These were removed by cold biopsy forceps On retroflexion and straight on view patient had trace to 1+ internal hemorrhoids.The patient tolerated the procedure well without difficulty. WITHDRAWAL TIME: 8 minutes QUALITY OF THE PREP: [place] Bowel Prep score: 9. COMPLICATIONS : None SPECIMENS: Ascending colon polyp Sigmoid polyps DISPOSITION: Stable D/C to home PLAN: 1. Repeat colonoscopy base on biopsy result likely in 5-7 years 2. Resume GI soft diet advance as tolerated 3. Increase fluid and fiber intake 4. Outpatient follow up with me in 4-6 weeks to review results and discuss further management ELVIN TONEY MD Jan 10, 2025 10:55
--- NOTE | 2025-01-10 10:59 | DVHOP2 ---
Operative Report DATE OF OPERATION: 01/10/25 PROCEDURE: Upper Endoscopy with biopsy. PREOPERATIVE INDICATION: The patient is a 74 -year-old male undergoing endoscopy for chronic GERD and Barretts esophagitis POSTOPERATIVE DIAGNOSES: 1. 3 cm sliding-type hiatal hernia with short-segment extension of columnar epithelium into distal esophagus where 2-3 cm from which biopsies were obtained 2. Minimal antral gastritis otherwise normal examination up to the 2nd and 3rd part of the duodenum PROCEDURE PERFORMED BY: Elvin Toney GI NURSE: Herlinda SCOPE: Olympus videoendoscope. ASA CLASS: 3 PREOPERATIVE MEDICATIONS: Dr. Guzman Swain PROCEDURE IN DETAIL: After obtaining an informed consent, the patient was placed on left lateral decubitus position. The patient was then sedated with the above medications. A bite block was placed between his teeth. The endoscope was then passed through the oropharynx, into the esophagus, and through the stomach and pylorus up to the second and third part of the duodenum. The endoscope was then withdrawn. The 2nd and 3rd part of the duodenum and the duodenal bulb were normal. Duodenal biopsies were obtained The pre-pyloric area antrum and body showed minimal gastritis. Gastric biopsies were obtained. On retroflexion the fundus cardia and angularis were normal. The endoscope was then withdrawn into distal esophagus Patient had a 3 cm sliding type hiatal hernia with irregular squamocolumnar junction and short-segment extension of columnar epithelium into the distal esophagus for 2-3 cm GE junction biopsies were obtained. The remaining proximal esophagus and oropharynx were unremarkable The patient tolerated the procedure well without difficulty. COMPLICATIONS : None SPECIMENS: Duodenal biopsies Gastric biopsies GE junction biopsies DISPOSITION: Stable D/C to home PLAN: 1. Await for biopsy result 2. Will place pt on Protonix 40 mg p.o. q.a.m. 3. Resume GI soft diet 4. Lifestyle and dietary modifications for GERD 5. Outpatient follow up with me in 4-6 weeks to review results and discuss further management ELVIN TONEY MD Jan 10, 2025 10:59
[2025-01-10 11:15] VITALS: BP 146/75; PULSE 81; RESP 13; O2SAT 97
== END 2025-01-10 11:30 | disposition home or self-care (01) ==
LOC: GI 08:19
PROVIDERS: ATTEND Internal Medicine Gastroenterology
DX: Z12.11 Encounter for screening for malignant neoplasm of colon (principal); K21.9 Gastro-esophageal reflux disease without esophagitis; K29.50 Unspecified chronic gastritis without bleeding; D12.2 Benign neoplasm of ascending colon; K31.A0 Gastric intestinal metaplasia, unspecified; K57.30 Diverticulosis of large intestine without perforation or abscess without bleeding; K64.8 Other hemorrhoids; K44.9 Diaphragmatic hernia without obstruction or gangrene; K22.70 Barrett's esophagus without dysplasia; M06.9 Rheumatoid arthritis, unspecified; I10 Essential (primary) hypertension; E11.40 Type 2 diabetes mellitus with diabetic neuropathy, unspecified; Z96.651 Presence of right artificial knee joint; Z90.89 Acquired absence of other organs; Z79.899 Other long term (current) drug therapy; Z79.84 Long term (current) use of oral hypoglycemic drugs; Z79.4 Long term (current) use of insulin
CPT/HCPCS: 36415; 43239; 45380; 80053; 81001; 82962; 85025; 85610; 85730; 88305; 88342; J2003; J2250; J2405; J2704; J3010; J7030